=== PATIENT | male | born 1995 | race Two or more races ===

== ENCOUNTER 2019-04-10 14:34 | Emergency (ER) | payer MEDICAID, OTHER ==
[~2019-04-10] VITALS: Ht 177.8 cm; Wt 77.1 kg
[2019-04-10 17:01] VITALS: BP 130/73
[2019-04-10] MEDS ORDERED: HYDROcodone-ACET 5/325MG TAB PO ONE (17:30)
== END 2019-04-10 18:37 | disposition home or self-care (01) ==
LOC: EDBD 14:34 → ER 14:39
DX: S16.1XXA Strain of muscle, fascia and tendon at neck level, initial encounter (principal); R51 Headache; F17.210 Nicotine dependence, cigarettes, uncomplicated; V43.52XA Car driver injured in collision with other type car in traffic accident, initial encounter; Y93.I9 Activity, other involving external motion; Y92.488 Other paved roadways as the place of occurrence of the external cause; Y99.8 Other external cause status
CPT/HCPCS: 70450; 72125; 72128